=== PATIENT | female | born 1980 | race Two or more races ===

== ENCOUNTER 2021-07-03 19:09 | Emergency (ER) | payer OTHER ==
[~2021-07-03] VITALS: Ht 170.2 cm; Wt 144.2 kg
[2021-07-03 20:12] VITALS: BP 118/60
--- NOTE | 2021-07-03 20:37 | NUR ---
gave patient a urine cup for collection
--- NOTE | 2021-07-03 22:14 | NUR ---
PT TAKEN TO ER BED 08
[2021-07-03] MEDS ORDERED: KETOROLAC 60 MG/2 ML VIAL IM ONE (22:35)
[2021-07-03] MEDS ORDERED: DIPH25TA53 PO (22:44)
[2021-07-03] MEDS ORDERED: IBUP-2213 PO (22:44)
--- NOTE | 2021-07-03 22:50 | NUR ---
Patient discharged with v/s stable. Written and verbal after care instructions given and explained. Patient alert, oriented and verbalized understanding of instructions. Ambulatory with steady gait. All questions addressed prior to discharge. ID band removed. Patient advised to follow up with PMD. Rx of BENADRYL AND IBUPROFEN given. Patient educated on indication of medication including possible reaction and side effects. Opportunity to ask questions provided and answered.
[2021-07-03] MEDS ORDERED: ONDA8TAB87 PO (22:53)
[2021-07-03 23:12] VITALS: BP 118/60
--- NOTE | 2021-07-03 23:30 | NUR ---
The patient's care was reviewed and supervised by AJ GARCIA RN.
== END 2021-07-03 22:50 | disposition home or self-care (01) ==
LOC: MED 19:09
DX: R50.9 Fever, unspecified (principal); M79.18 Myalgia, other site; R21 Rash and other nonspecific skin eruption
CPT/HCPCS: 81002; 81025; 96372; 99283; J1885